=== PATIENT | female | born 1940 | race Hispanic/Latino ===

== ENCOUNTER 2019-09-05 21:56 | Inpatient (IN) | payer OTHER ==
[~2019-09-05] VITALS: Ht 157.5 cm; Wt 65.8 kg
[2019-09-05] MEDS ORDERED: SODIUM CHLORIDE FLUSH 10 ML SYR INJ PRN (22:30)
[2019-09-05 22:41] LABS: EOSINOPHILS # (AUTO) 0.2 (0.0-0.4); EOSINOPHILS % 2.3 % (0.0-6.0); HEMATOCRIT 38.9 % (34.2-44.1); HEMOGLOBIN 12.9 g/dL (12.0-16.0); LYMPHOCYTES # (AUTO) 3.2 (1.0-3.2); LYMPHOCYTES % 45.9 % (18.0-39.1); MEAN CORPUSCULAR HEMOGLOBIN 31.1 pg (28-32); MEAN CORPUSCULAR HGB CONC 33.2 g/dL (31-35); MEAN CORPUSCULAR VOLUME 93.7 fL (81-99); MONOCYTES # (AUTO) 0.7 (0.2-0.8); NEUTROPHILS # (AUTO) 2.9 (2.1-6.9); NEUTROPHILS % 41.7 % (38.7-80.0); PLATELET COUNT 276 x10e3/uL (140-360); RED BLOOD COUNT 4.15 x10e6/uL (3.6-5.1); RED CELL DISTRIBUTION WIDTH 12.2 % (11.7-14.4)
[2019-09-05 22:56] LABS: ALANINE AMINOTRANSFERASE 25 IU/L (0-55); ALBUMIN 4.2 g/dL (3.5-5.0); ALBUMIN/GLOBULIN RATIO 1.3 (0.8-2.0); ALKALINE PHOSPHATASE 67 IU/L (40-150); BLOOD UREA NITROGEN 18 mg/dL (7-26); BUN/CREATININE RATIO 20 (6-25); CALCIUM 10.1 mg/dL (8.4-10.2); CARBON DIOXIDE 26 mmol/L (22-29); CHLORIDE 105 mmol/L (98-107); CLARITY,URINE CLEAR (CLEAR); COLOR,URINE YELLOW (YELLOW); CREATINE KINASE 109 IU/L (29-168); CREATININE, SERUM 0.89 mg/dL (0.57-1.11); EST GLOMERULAR FILTRATION RATE > 60 ML/MIN (60-); GLUCOSE 160 mg/dL (74-118); LEUKOCYTE ESTERASE ,URINE TRACE (NEGATIVE); LIPASE 33 U/L (8-78); NITRITE,URINE POSITIVE (NEGATIVE); PROTEIN,URINE DIPSTICK NEGATIVE (NEGATIVE); SODIUM 140 mmol/L (136-145)
[2019-09-05 22:57] LABS: BACTERIA,URINE MANY /HPF; BILIRUBIN,URINE NEGATIVE (NEGATIVE); EPITHELIAL CELLS,URINE FEW /LPF; KETONES,URINE NEGATIVE (NEGATIVE); URINE UROBILINOGEN 0.2 mg/dL (0.2 - 1); WBC,URINE (MAN) >50 /HPF (0-5)
[2019-09-05] MEDS ORDERED: KETOROLAC TROMETHAMINE 30 MG/ML VIAL IV STA (23:08)
--- NOTE | 2019-09-05 23:13 | NUR ---
ULTRASOUND AT BEDSIDE FOR EXAM AT THIS TIME, PT HAS CALL LIGHT IN EASY REACH, NAD, V/S/S; WILL CONTINUE TO MONITOR.
[2019-09-06] VITALS (10 sets, daily range): BP systolic 123–156; BP diastolic 61–70
--- NOTE | 2019-09-06 00:15 | Diagnostic Imaging Report ---
EXAMINATION: CHEST SINGLE (PORTABLE) INDICATION: Chest pain COMPARISON: None FINDINGS: TUBES and LINES: None. LUNGS: Normal lung volumes. Mild smooth central bronchial wall thickening. Subtle right hilar haziness. PLEURA: No pleural effusion or pneumothorax. HEART AND MEDIASTINUM: The cardiomediastinal silhouette is unremarkable. BONES AND SOFT TISSUES: No acute osseous lesion. Soft tissues are unremarkable. UPPER ABDOMEN: No free air under the diaphragm. IMPRESSION: Findings of bronchitis, subtle right right infrahilar haziness can be due to atelectasis or pneumonia. Signed by: Ryne Palomino DO on 09/06/2019 12:11 AM
[2019-09-06] MEDS ORDERED: CEFTRIAXONE SOD 1 GM/NS 50 ML 50 ML IV STA (00:39)
--- NOTE | 2019-09-06 01:29 | Diagnostic Imaging Report ---
EXAM: Right Upper Quadrant Ultrasound with Doppler INDICATION: Abdominal pain COMPARISON: None. TECHNIQUE: Transverse and longitudinal images of the right upper abdomen were obtained. Grayscale, color Doppler and spectral waveform analysis of the hepatic vasculature and splenic vein were performed. FINDINGS: Liver: Size: 13.7 cm in the right midclavicular line, normal Appearance: Normal echogenicity, smooth contour Mass: No focal masses Gallbladder: Stones/Sludge: Gallstones, including stones in the gallbladder neck and sludge Wall: 0.2 cm, mildly heterogeneous Appearance: Mildly distended. Trace pericholecystic fluid. Sonographic Morris's Sign: Negative Bile Ducts: Intrahepatic Ducts: No dilatation Extrahepatic Ducts: Common bile duct measures ... cm, no dilatation Pancreas: Visualized portions of the pancreatic head, neck and proximal body are normal. Right Kidney: Size: 9.5 cm Echogenicity: Normal Parenchymal thickness: Normal Collecting system: No hydronephrosis Stones: None Cyst/Mass: None Vessels: Main Portal Vein: Diameter: 0.75 cm, normal. Normal flow direction. Aorta: Visualized portions are normal Inferior Vena Cava: Visualized portions are normal Free Fluid: No ascites or pleural effusion IMPRESSION: Gallstones, with subtle findings which can be seen with cholecystitis. Signed by: Ryne Palomino DO on 09/06/2019 1:25 AM
[2019-09-06] MEDS ORDERED: PIPER-TAZ 3.375 GM 50 ML IV STA (01:39)
[2019-09-06] MEDS ORDERED: METHYLPREDNISOLONE SOD SUCC 125 MG/2ML VIAL IV ONE ×2 (01:45)
--- NOTE | 2019-09-06 02:12 | NUR ---
PT WAS GOING TO BE D/C PER ED WORKUP; STATES DR. Bart LUA SENT HER FOR ADMISSION DUE TO CONCERNS WITH POTENTIALLY NEEDING SURGERY FOR HER GALLBLADDER, INFORMED ED MD AT THIS TIME, CHANGING DISPO TO ADMIT.
[2019-09-06] MEDS ORDERED: SODIUM CHLORIDE 0.9% 1000ML 1,000 ML IV SCH (03:15)
[2019-09-06] MEDS ORDERED: ONDANSETRON HCL INJ 2MG/ML 2ML 2 MG/ML VIAL IV PRN (03:15)
--- OUTSIDE RECORDS SUMMARY | 2019-09-06 03:24 | XMS REPORT ---
Author Author [facility] Organization [facility] Address Unknown Phone Unavailable Care Team Providers Care It Service Delivery Manager Name Role Phone Ilsa GUPTA Unavailable Unavailable Problems This patient has no known problems. Allergies, Adverse Reactions, Alerts This patient has no known allergies or adverse reactions. Medications This patient has no known medications. Results Test Description Test Time Test Comments Text Results Atomic Results Result Comments US GALLBLADDER 2019-09-06 01:22:00 [place] [address] Patient Name: LANNY YORK MR #: [id number] : 1940 Age/Sex: 79/F Req #: [id number] Adm Physician: Ordered by: CHEN GUPTA Report #: [id number] Location: ER Room/Bed: Procedure: [id number] US/US GALLBLADDER Exam Date: 09/06/19 Exam Time: 3 REPORT STATUS: Signed EXAM: Right Upper Quadrant Ultrasound with Doppler INDICATION: Abdominal pain COMPARISON: None. TECHNIQUE: Transverse and longitudinal images of the right upper abdomen were obtained. Grayscale, color Doppler and spectral waveform analysis of the hepa tic vasculature and splenic vein were performed. FINDINGS: Liver: Size: 13.7 cm in the right midclavicular line, normal Appearance: Normal echogenicity, smooth contour Mass: No focal masses Gallbladder: Stones/Sludge: Gallstones, including stones in the gallbladder neck and sludge Wall: 0.2 cm, mildly heterogeneous Appearance: Mildly distended. Trace pericholecystic fluid. Sonographic Morris's Sign: Negative Bile Ducts: Intrahepatic Ducts: No dilatation Extrahepatic Ducts: Common bile duct measures ... cm, no dila tation Pancreas: Visualized portions of the pancreatic head, neck and proximal body are normal. Right Kidney: Size: 9.5 cm Echogenicity: Normal Parenchymal thickness: Normal Collecting system: No hydronephrosis Stones: None Cyst/Mass: None Vessels: Main Portal Vein: Diameter: 0.75 cm, normal. Normal flow direction. Aorta: Visualized portions are normal Inferior Vena Cava: Visualized portions are normal Free Fluid: No ascites or pleural effusion IMPRESSION: Gallstones, with subtle findings which can be seen with cholecystitis. Signed by: Ryne Palomino DO on 09/06/2019 1:25 AM Dictated By: RYNE PALOMINO DO 4 Transcribed By: AMANDA on 09/06/19124 COPY TO: CHEN GUPTA CHEST SINGLE (PORTABLE) 2019-09-06 00:10:00 [place] [address] Patient Name: LANNY YORK MR #: [id number] : 1940 Age/Sex: 79/F Req #: [id number] Adm Physician: Ordered by: CHEN GUPTA Report #: [id number] Location: ER Room/Bed: Procedure: [id number] DX/CHEST SINGLE (PORTABLE) Exam Date: 09/05/19 Exam Time: 2315 REPORT STATUS: Signed EXAMINATION: CHEST SINGLE (PORTABLE) INDICATION: Chest pain COMPARISON: None FINDINGS: TUBES and LINES: None. LUNGS: Normal lung volumes. Mild smooth central bronchial wall thickening. Subtle right hilar haziness. PLEURA: No pleural effusion or pneumothorax. HEART AND MEDIASTINUM: The cardiomediastinal silhouette is unremarkable. BONES AND SOFT TISSUES: No acute osseous lesion. Soft tissues are unremarkable. UPPER ABDOMEN: No free air under the diaphragm. IMPRESSION: Findings of bronchitis, subtle right right infrahilar haziness can be due to atelectasis or pneumonia. Signed by: Ryne Palomino DO on 09/06/2019 12:11 AM Dictated By: RYNE PALOMINO DO Transcribed By: AMANDA on 09/06/1910 COPY TO: CHEN GUPTA
--- NOTE | 2019-09-06 04:02 | NUR ---
PATIENT SWABBED FOR COVID-19 FOR SURGICAL CLEARANCE, PATIENT INFORMED OF ORDERS, VERBALIZED UNDERSTANDING; DENIES ANY SYMPTOMS.
--- NOTE | 2019-09-06 05:48 | NUR ---
PT IS TRANSFERRED FROM ER .PT IS AOX3 .RESPIRATIONS ARE EVEN AND UNLABORED ,SKIN WARM AND DRY TO TOUCH,RT AC 20G .NS AT 100CC/HR ORIENTED THE PT TO THE ROOM.CALL LIGHT WITH IN REACH ,BED IN THE LOW POSITION .CONTINUE TO MONITOR
[2019-09-06] MEDS: PIPER-TAZ 3.375 GM 50 ML IV SCH ×3 (06:00→21:26)
[2019-09-06] MEDS ORDERED: LEVOTHYROXINE100 MC1 IV (06:27)
[2019-09-06] MEDS ORDERED: ATORVASTATIN (06:27)
[2019-09-06] MEDS ORDERED: LOSARTAN POTASS25 MG (06:27)
[2019-09-06] MEDS ORDERED: [UNRECOGNIZED DRUG - OTHER] (06:27)
[2019-09-06] MEDS ORDERED: TRAZODONE HCL50 MG PO (06:27)
[2019-09-06] MEDS ORDERED: LIPITOR20 MG PO (06:34)
--- NOTE | 2019-09-06 07:03 | NUR ---
BEDSIDE REPORT GIVEN TO THE ONCOMING NURSE
[2019-09-06] MEDS ORDERED: IBANDRONATE SO150 MG (07:09)
--- NOTE | 2019-09-06 08:50 | NUR ---
Dr. Gomez visited and new order received and recorded.
[2019-09-06] MEDS ORDERED: TRAZODONE HCL 50 MG TAB PO SCH (09:00)
[2019-09-06] MEDS: LOSARTAN POTASSIUM 25 MG TAB PO SCH (09:00)
[2019-09-06] MEDS: DEXTROSE 5%/0.45% SOD CHL 1,000 ML IV SCH ×2 (09:00→20:38)
--- NOTE | 2019-09-06 09:20 | NUR ---
The pt. declines to take the meds stating "my drLuisa told me not to eat or drink because he may do surgery".
[2019-09-06] MEDS ORDERED: LEVOTHYROXINE SODIUM 100 MCG TAB PO ONE (09:30)
--- NOTE | 2019-09-06 10:00 | History and Physical ---
PRIMARY CARE PHYSICIAN: . SEPTIC TANK SERVICE TECHNICIAN: Dr. Teo Timmons. CHIEF COMPLAINT: Cholelithiasis, cholecystitis, and right upper quadrant abdominal pain. HISTORY AND PHYSICAL: A 79-year-old female, who came in with right upper quadrant abdominal pain. The patient had pain off and on, but much more severe some day of her presentation. Gallbladder ultrasound show stone, sludge, gallstone including stones in the gallbladder neck and sludge. Wall is 0.2 cm, mildly heterogeneous. Mild distended. The patient is having pain. Positive Morris's sign. The patient is stable. She received IV antibiotics. The patient is waiting for surgery consultation. PAST MEDICAL HISTORY: Dyslipidemia, osteoporosis, hypothyroidism, and hypertension. PAST SURGICAL HISTORY: Noncontributory. SOCIAL HISTORY: The patient does not smoke or use alcohol. No regular drug use. ALLERGIES: TO BACTRIM. HOME MEDICATIONS: Lipitor, Boniva, levothyroxine, losartan, and trazodone. PHYSICAL EXAMINATION: VITAL SIGNS: Temperature is 98, blood pressure 156/70, pulse rate 92, respirations 20. GENERAL: The patient is not in acute distress and awake. HEENT: Normocephalic and atraumatic. Anicteric. NECK: Supple grossly. PULMONARY: Clear. CARDIOVASCULAR: Regular rate rhythm. ABDOMEN: Right upper quadrant tenderness. No guarding. No rebound. EXTREMITIES: No cyanosis or edema. NEUROLOGIC: No focal deficit. LABORATORY DATA: Sodium is 140, potassium 4, chloride 105, bicarb 26, BUN 18, creatinine 0.8, glucose 160. WBC 7, hemoglobin 13, hematocrit 39, and platelets 276. AST 23, ALT 25, total bilirubin 0.5, alkaline phosphatase is 67. IMPRESSION: 1. Acute cholecystitis associated with gallstones. 2. Right upper quadrant pain. 3. Baseline stable medical problems. PLAN: Consultation with Dr. Teo Timmons. The patient will need cholecystectomy. Awaiting for Dr. Timmons to decide. In the meantime, continue to support the patient. IV fluid, pain control, antibiotics. MD JACEK Martin/[place] /[id number]
[2019-09-06] MEDS: MORPHINE SULFATE 2 MG/ML SYR 1ML IV PRN (14:10)
--- NOTE | 2019-09-06 19:02 | NUR ---
RECEIVED THE PATIENT IN REPORT.LYEING IN THE BED.IV FLUID RUNNING.STABLE CONDITION.TOLERATE THE DIET.BED LOCKED AND IN LOWEST POSITION.PHONE AND CALL LIGHT WITHIN REACH.INSTRUCTED TO CALL FOR ASSISTANCE NEEDED.
--- NOTE | 2019-09-06 20:20 | NUR ---
Assessment done.no resp.distress.no pain voiced.ambulates.voided.refused to put bed alarm on.iv fluid running.
[2019-09-06] MEDS: TRAZODONE HCL 50 MG TAB PO SCH (22:31)
[2019-09-07] VITALS (7 sets, daily range): BP systolic 116–154; BP diastolic 62–68
[2019-09-07] MEDS: PIPER-TAZ 3.375 GM 50 ML IV SCH ×3 (05:37→22:10)
[2019-09-07] MEDS: LEVOTHYROXINE SODIUM 100 MCG TAB PO SCH (05:37)
[2019-09-07] MEDS: DEXTROSE 5%/0.45% SOD CHL 1,000 ML IV SCH ×3 (06:12→23:04)
--- NOTE | 2019-09-07 07:00 | NUR ---
Bed side shift report given to oncoming rn.stable condition
--- NOTE | 2019-09-07 07:00 | NUR ---
BEDSIDE SHIFT REPORT RECEIVED PT IN STABLE CONDITION, DENIES PAIN AT THIS TIME, UPDATED ON POC VOICED UNDERSTANDING, CALL LIGHT IN REACH WILL CONTINUE TO MONITOR
[2019-09-07] MEDS: LOSARTAN POTASSIUM 25 MG TAB PO SCH ×2 (08:40→08:42)
[2019-09-07] MEDS: MORPHINE SULFATE 2 MG/ML SYR 1ML IV PRN (12:08)
[2019-09-07] MEDS ORDERED: ONDANSETRON HCL 4 MG ORAL DISINTEGRATING TAB PO PRN (14:15)
--- NOTE | 2019-09-07 19:00 | NUR ---
RECEIVED THE PATIENT IN REPORT.LYEING IN THE BED.STABLE CONDITION.
--- NOTE | 2019-09-07 20:10 | NUR ---
WAS IN THE UNIT TO SEE THE PATIENT.RECEIVED NEW ORDERS.ASSESSMENT DONE.NO REP.DISTRESS.NO PAIN VOICED.BED LOCKED AND IN LOWEST POSITION.PHONE AND CALL LIGHT WITHIN REACH.INSTRUCTED TO CALL FOR ASSISTANCE NEEDED.
[2019-09-07] MEDS: TRAZODONE HCL 50 MG TAB PO SCH (23:03)
--- NOTE | 2019-09-07 23:34 | NUR ---
CONSENT SIGNED.ADVISED NPO AFTER MIDNIGHT.HIBICLENS BATH TAKEN.STABLE CONDITION.
[2019-09-08] VITALS (8 sets, daily range): BP systolic 129–165; BP diastolic 61–72
[2019-09-08] MEDS: LEVOTHYROXINE SODIUM 100 MCG TAB PO SCH (05:18)
[2019-09-08] MEDS: PIPER-TAZ 3.375 GM 50 ML IV SCH ×3 (05:29→22:33)
--- NOTE | 2019-09-08 06:55 | NUR ---
BED SIDE SHIFT REPORT GIVEN TO ONCOMING RN.PATIENT IS OFF THE UNIT FOR PROCEDURE.
--- NOTE | 2019-09-08 06:56 | NUR ---
PATIENT LEFT TO OR VIA STRETCHER FOR PROCEDURE IN STABLE CONDITION.
[2019-09-08] MEDS ORDERED: HYDROGEN PEROXIDE 120 ML BTL ONE (07:25)
[2019-09-08] MEDS ORDERED: BUPIVACAINE 0.5%/EPI 30 ML SDV INJ ONE (07:25)
[2019-09-08] MEDS ORDERED: HYDROCODONE/APAP 7.5MG-325MG 1 EA TAB PO PRN (09:15)
[2019-09-08] MEDS ORDERED: ONDANSETRON HCL INJ 2MG/ML 2ML 2 MG/ML VIAL IV PRN (09:15)
[2019-09-08] MEDS ORDERED: FENTANYL CITRATE/PF 100MCG/2 ML INJ ONE ×2 (09:26→18:44)
[2019-09-08] MEDS ORDERED: HYDROMORPHONE 1MG/1ML INJ ONE (09:47)
--- NOTE | 2019-09-08 09:48 | Operative Report ---
DATE OF PROCEDURE: 09/08/2019 SURGEON: Teo Timmons MD PREOPERATIVE DIAGNOSES: Acute cholecystitis secondary to cholelithiasis, chronic cholecystitis. POSTOPERATIVE DIAGNOSES: Acute cholecystitis secondary to cholelithiasis, chronic cholecystitis, intra-abdominal adhesions. PROCEDURE PERFORMED: Laparoscopic cholecystectomy. ANESTHESIA: General endotracheal. ESTIMATED BLOOD LOSS: Minimal. DRAINS: None. COMPLICATIONS: None. INDICATION AND FINDINGS: The patient is a pleasant 79-year-old female, admitted through the emergency room with acute right upper quadrant pain, severe. The patient was admitted for surgical treatment. She had a longstanding history of dyspepsia, multiple episodes similar to the current one in the past. Intraoperative findings were acute cholecystitis, cholelithiasis, fatty liver infiltration, pelvic adhesions from previous pelvic surgery. The cystic duct was small and nondilated nor was the common bile duct. DESCRIPTION OF PROCEDURE: With the patient lying on the operative table in the supine position after administration of general anesthesia, she was prepped and draped for laparoscopic cholecystectomy. The procedure was begun by establishing the pneumoperitoneum in the right upper quadrant midclavicular line because of the previous pelvic surgery. Pneumoperitoneum was insufflated with 15 mm of pressure and then a 5 mm trocar was introduced in that location. Then, the saline drop test was performed. The pneumoperitoneum was insufflated to 15 mm of pressure and then the 10/11 trocar was placed in the subxiphoid region and two lateral working ports 5 mm each were placed in the right midclavicular line. The gallbladder was then retracted cephalad using grasping forceps through two 5 mm lateral working ports and the dissection on the gallbladder was begun high in the neck posteriorly, exposing the cystic duct away from the common bile duct. The common bile duct junction with the cystic duct was identified. Neither of the two structures were dilated. At this point, we then clipped the cystic duct proximal to the common bile duct 3 times distally and once proximally into the gallbladder neck, and transected the cystic artery and transected the cystic duct. The cystic artery was also transected between titanium clips and then we went ahead and took the gallbladder down from the liver bed using electrocautery dissection. The gallbladder was finally detached and removed through transposition of the camera to the subxiphoid port contained stones. Wall was thickened and there was some mild edema. After we did that, we went ahead and we inspected the operative field. Some minor oozing was cauterized, inspected again the operative field after we stop the bleeding. There was no evidence of bile leak, or apparent bile injury. After we irrigated the right upper quadrant until the effluent fluid was clear, we then released the pneumoperitoneum under direct vision with the camera and closed the wound using 0-Vicryl for the umbilical port, 3-0 Vicryl for the subcutaneous tissue in that location as well as the subxiphoid port. The skin of all the ports was closed using shemar. A 0.25% Marcaine with epinephrine was given as local block at the end of the case. The patient tolerated the procedure well, was taken to recovery room in stable condition. MD LAVELL Herring/[place] /[id number]
--- NOTE | 2019-09-08 09:54 | NUR ---
PATIENT BACK FROM OR. PATIENT RESTING IN BED NO S/S OF DISTRESS. 4 TROCAR SITES TO ABDOMEN C/D/I. APPLIED SCD'S BILATERALLY. CALL LIGHT IN REACH WILL CONTINUE TO MONITOR PATIENT.
[2019-09-08] MEDS: LOSARTAN POTASSIUM 25 MG TAB PO SCH (10:20)
--- NOTE | 2019-09-08 10:33 | NUR ---
REPORT GIVEN TO CHARISSA MCCABE.
--- NOTE | 2019-09-08 10:38 | NUR ---
PATIENT IS IN STABLE CONDITION WITH NO S/S OF RESPIRATORY DISTRESS. NO PAIN VOICED/INDICATED AT THIS TIME FROM THE PATIENT. ABD ASSESSED- TROCHAR SITES NOTED WITH FOAM DRESSING APPLIED, NO DRAINAGE NOTED. IV FLUIDS INFUSING. SCD'S APPLIED. CALL LIGHT IS WITHIN REACH OF PATIENT- PATIENT INSTRUCTED TO CALL FOR ASSISTANCE NEEDED.
[2019-09-08] MEDS: DEXTROSE 5%/0.45% SOD CHL 1,000 ML IV SCH ×2 (13:00→21:19)
--- NOTE | 2019-09-08 19:18 | NUR ---
BEDSIDE SHIFT REPORT RECEIVED FROM DAY RN. PT IS ALERT AND ORIENTED X3. PT SPEAKS [place] AND [facility] [place]. PT S/P LAP NAVYA 09/07. FOAM DRESSINGS TO 4 TROCHAR SITES. ALL DRESSINGS DRY AND INTACT. PIV RT AC D51/2 AT 100ML/HR. RESPIRATIONS EVEN AND UNLABORED. DENIES PAIN AT THIS TIME. PT SITTING IN CHAIR AT BEDSIDE. CALL LIGHT WITHIN REACH. BED LOCKED AND IN LOW POSITION.
--- NOTE | 2019-09-08 19:18 | NUR ---
PATIENT IS SITTING IN THE CHAIR- IN STABLE CONDITION WITH NO S/S OF RESPIRATORY DISTRESS. PATIENT RECENTLY RECEIVED PAIN MEDICATION AND IS C/O ABD DISCOMFORT. IV FLUIDS INFUSING. CALL LIGHT IS WITHIN REACH, PATIENT INSTRUCTED TO CALL FOR ASSISTANCE NEEDED. BEDSIDE REPORT GIVEN TO ONCOMING NURSE
[2019-09-08] MEDS ORDERED: SUCCINYLCHOLINE CHLORIDE 20 MG/ML 10ML VIAL ONE (19:34)
[2019-09-08] MEDS ORDERED: NEOSTIGMINE 1 MG/ML 10ML VIAL ONE (19:34)
[2019-09-08] MEDS ORDERED: ACETAMINOPHEN 1000 MG/100 ML IV ONE (19:34)
[2019-09-08] MEDS ORDERED: DEXAMETHASONE SOD PHOS INJ 4 MG/ML VIAL ONE (19:34)
[2019-09-08] MEDS ORDERED: KETOROLAC TROMETHAMINE 30 MG/ML VIAL ONE (19:34)
[2019-09-08] MEDS ORDERED: SEVOFLURANE INHAL SOLN 250 ML PEN BTL ONE (19:34)
[2019-09-08] MEDS ORDERED: ROCURONIUM BROMIDE 10 MG/ML 5ML VIAL IV ONE (19:34)
[2019-09-08] MEDS ORDERED: ONDANSETRON HCL INJ 2MG/ML 2ML 2 MG/ML VIAL ONE (19:34)
[2019-09-08] MEDS ORDERED: PROPOFOL IV EMULSION 10 MG/ML 20 ML VIAL ONE (19:34)
[2019-09-08] MEDS ORDERED: EPHEDRINE SULFATE INJ 50 MG/ML VIAL ONE (19:34)
[2019-09-08] MEDS ORDERED: GLYCOPYRROLATE INJ 0.2 MG/ML VIAL ONE (19:34)
[2019-09-08] MEDS ORDERED: LIDOCAINE HCL 2% LOCAL INJ 5 ML SDV VIAL INJ ONE (19:34)
[2019-09-08] MEDS: TRAZODONE HCL 50 MG TAB PO SCH (21:17)
[2019-09-09 00:48] VITALS: BP 133/61
[2019-09-09] MEDS: DEXTROSE 5%/0.45% SOD CHL 1,000 ML IV SCH (06:32)
[2019-09-09] MEDS: LEVOTHYROXINE SODIUM 100 MCG TAB PO SCH (06:32)
[2019-09-09 06:48] LABS: BASOPHILS % 0.2 % (0.0-1.0); EOSINOPHILS # (AUTO) 0.1 (0.0-0.4); EOSINOPHILS % 0.4 % (0.0-6.0); HEMOGLOBIN 12.1 g/dL (12.0-16.0); LYMPHOCYTES # (AUTO) 3.4 (1.0-3.2); LYMPHOCYTES % 27.6 % (18.0-39.1); MEAN CORPUSCULAR HEMOGLOBIN 31.8 pg (28-32); MEAN CORPUSCULAR HGB CONC 33.6 g/dL (31-35); MEAN CORPUSCULAR VOLUME 94.5 fL (81-99); MONOCYTES # (AUTO) 1.4 (0.2-0.8); MONOCYTES % 11.1 % (4.4-11.3); NEUTROPHILS # (AUTO) 7.4 (2.1-6.9); NEUTROPHILS % 60.4 % (38.7-80.0); PLATELET COUNT 244 x10e3/uL (140-360); RED BLOOD COUNT 3.81 x10e6/uL (3.6-5.1); RED CELL DISTRIBUTION WIDTH 11.9 % (11.7-14.4)
[2019-09-09 06:53] VITALS: BP 162/71
[2019-09-09 07:12] LABS: ANION GAP 11.2 mmol/L (8-16); BLOOD UREA NITROGEN 9 mg/dL (7-26); BUN/CREATININE RATIO 12 (6-25); CALCIUM 8.7 mg/dL (8.4-10.2); CARBON DIOXIDE 23 mmol/L (22-29); CHLORIDE 109 mmol/L (98-107); CREATININE, SERUM 0.76 mg/dL (0.57-1.11); EST GLOMERULAR FILTRATION RATE > 60 ML/MIN (60-); GLUCOSE 128 mg/dL (74-118); POTASSIUM 4.2 mmol/L (3.5-5.1); SODIUM 139 mmol/L (136-145)
[2019-09-09] MEDS: PIPER-TAZ 3.375 GM 50 ML IV SCH (07:19)
[2019-09-09 07:52] VITALS: BP 159/74
[2019-09-09 07:57] VITALS: BP 159/74
[2019-09-09 08:17] VITALS: BP 159/74
[2019-09-09] MEDS: LOSARTAN POTASSIUM 25 MG TAB PO SCH (08:21)
[2019-09-09 11:46] VITALS: BP 165/75
== END 2019-09-09 11:49 | disposition home or self-care (01) | DRG 418 ==
LOC: ER 21:56 → ERHOLD 09-06 03:12 → MED/SURG 09-06 05:05
PROVIDERS: ADMIT Internal Medicine; ATTEND Internal Medicine
PROC: 0FT44ZZ Resection of Gallbladder, Percutaneous Endoscopic Approach (ICD-10-PCS; principal; 2019-09-08 07:30)
DX: K80.12 Calculus of gallbladder with acute and chronic cholecystitis without obstruction (principal); N39.0 Urinary tract infection, site not specified; N99.4 Postprocedural pelvic peritoneal adhesions; Z88.2 Allergy status to sulfonamides; Z88.8 Allergy status to other drugs, medicaments and biological substances
CPT/HCPCS: 36415; 71045; 76705; 80048; 80053; 81001; 82550; 82553; 83690; 84484; 85025; 87635; 88304; 93005; 96361; 99284; C1766; J0330; J0696; J1100; J1170; J1885; J2001; J2270; J2405; J2543; J2710; J2930; J3010; J7030